=== PATIENT | male | born 1945 | race Caucasian/White ===

== ENCOUNTER → 2020-05-08 11:59 | Outpatient (CLI) | payer MEDICARE, BC, SELFPAY ==
[2020-05-08 13:37] LABS: Anion Gap 7 (5-15); BUN 30 mg/dL (7-18); Calcium,Total 9.1 mg/dL (8.5-10.1); Chloride 106 mmol/L (98-107); Creatinine, Serum 1.11 mg/dL (0.70-1.30); EST Glomerular Filtration Rate 69 mL/min (>60); Est Glom Filt Rate - Afr Amer 83 mL/min (>60); Glucose 105 mg/dL (74-106); PSA,Total- Diagnostic 7.27 ng/mL (0.0-4.0); Potassium 5.7 mmol/L (3.5-5.1); Sodium Level 136 mmol/L (136-145)
== END ==
PROVIDERS: PCP Family Medicine; Referring Provider Urology; Visit Provider Urology
DX: N40.1 Benign prostatic hyperplasia with lower urinary tract symptoms (principal)
CPT/HCPCS: 36415; 80048; 84153

== ENCOUNTER → 2020-06-06 11:51 | Outpatient (CLI) | payer MEDICARE, BC, SELFPAY ==
--- NOTE | 2020-06-06 09:15 | PROSBIL_PTH ---
PATIENT: RAJWINDER FOSS LOC: [facility] U#:[id number] AGE/SX: 80/M ROOM: RE06/06/[address]: Dr. Campbell Webster MD : 1945 BED: DIS: SPEC #: [id number] RECD: 06/06/20 12:09 STATUS: DAMI GEOFFREY #: [id number] [place]: 06/06/20 09:[address]: Campbell Webster DEPT: SURGICAL PATHOLOGY RECD BY: Felipe Washburn ENTERED: 06/06/20 13:11 SP TYPE: PROST BX FRANCK DR: Dr. Mario Oneal MD Tissues: A - PROSTATE RIGHT B - PROSTATE RIGHT C - PROSTATE RIGHT D - PROSTATE LEFT E - PROSTATE LEFT F - PROSTATE LEFT Procedures: PROSTATE BX HEADER OPERATION: Prostate biopsy PRE-OP DIAGNOSIS: Elevated PSA TISSUE SUBMITTED: A - Right apex, B - Right mid, C - Right base, D - Left apex, E - Left mid, F - Left base MICROSCOPIC DIAGNOSIS A. Right prostate, apex, core biopsy: Focal glandular atrophy and mild chronic inflammation. B. Right prostate, mid, core biopsy: Focal glandular atrophy and minimal chronic inflammation. C. Right prostate, base, core biopsy: Focal glandular atrophy. D. Left prostate, apex, core biopsy: Benign prostatic tissue. E. Left prostate, mid, core biopsy: Benign hyalinized nodule. Mild chronic inflammation. F. Left prostate, base, core biopsy: Chronic inflammation. AM:yolanda 06/07/20 MICROSCOPIC DESCRIPTION Slides are reviewed. GROSS DESCRIPTION A - Received is one container designated prostate, right apex. The specimen consists of one elongated fragment of light lange-white soft tissue measuring 1 cm in length and 0.1 cm in diameter. The specimen is totally submitted in one cassette. B - Received is one container designated prostate, right mid. The specimen consists of two elongated fragments of light lange-white soft tissue measuring 0.3 and 1 cm in length and 0.1 cm in diameter. The specimen is totally submitted in one cassette. C - Received is one container designated prostate, right base. The specimen consists of one elongated fragment of light lange-white soft tissue measuring 1.2 cm in length and 0.1 cm in diameter. The specimen is totally submitted in one cassette. D - Received is one container designated prostate, left apex. The specimen consists of one elongated fragment of light lange-white soft tissue measuring 1.5 cm in length and 0.1 cm in diameter. The specimen is totally submitted in one cassette. E - Received is one container designated prostate, left mid. The specimen consists of two elongated fragments of light lange-white soft tissue measuring 0.4 and 1.5 cm in length and 0.1 cm in diameter. The specimen is totally submitted in one cassette. F - Received is one container designated prostate, left base. The specimen consists of two elongated fragments of light lange-white soft tissue measuring 0.5 and 1 cm in length and 0.1 cm in diameter. The specimen is totally submitted in one cassette. / SJ:rg 06/06/20 TC:3 CPT: G0146
== END ==
PROVIDERS: PCP Family Medicine; Referring Provider Urology; Visit Provider Urology
DX: R97.20 Elevated prostate specific antigen [PSA] (principal)
CPT/HCPCS: 88305; G0416

== ENCOUNTER → 2020-12-28 11:48 | Outpatient (CLI) | payer MEDICARE, BC, SELFPAY ==
[2020-12-28 15:45] LABS: PSA,Total- Diagnostic 2.93 ng/mL (0.0-4.0)
== END ==
PROVIDERS: PCP Family Medicine; Referring Provider Urology; Visit Provider Urology
DX: R97.20 Elevated prostate specific antigen [PSA] (principal)
CPT/HCPCS: 36415; 84153

== ENCOUNTER → 2022-08-27 | Outpatient (CLI) | payer MEDICARE, BC, SELFPAY ==
[2022-08-27 10:21] LABS: PSA,Total- Diagnostic 2.11 ng/mL (0.0-4.0)
== END | disposition home or self-care (01) ==
PROVIDERS: PCP Family Medicine; Referring Provider Urology; Visit Provider Urology
DX: R97.20 Elevated prostate specific antigen [PSA] (principal)
CPT/HCPCS: 36415; 84153

== ENCOUNTER → 2022-10-07 | Outpatient (CLI) | payer MEDICARE, BC, SELFPAY ==
[2022-10-07 12:08] LABS: Erythrocyte Sedimentation Rate 7 mm/hr (0-20)
[2022-10-07 12:10] LABS: Absolute Lymphocyte Count 1.49 X10^3/uL (0.83-4.51); Absolute Neutrophil Count 3.2 X10^3/uL (2.0-7.7); Basophil# 0.07 X10^3/uL; Basophil% 1.2 % (0-1); Eosinophils% 7.1 % (0-5); Hematocrit 41.3 % (40-54); Hemoglobin 13.5 g/dL (13.0-16.5); Lymphocyte # 1.49 X10^3/ul (0.83-4.51); Lymphocyte % 26.3 % (19-41); Mean Corp Hgb Conc 32.7 g/dL (32-36); Mean Corpuscular Hgb 29.9 pg (27.0-32.0); Mean Corpuscular Volume 91.6 fL (80-94); Mean Platelet Vol. 9.6 fl (6.2-12.0); Monocyte# 0.47 X10^3/uL; Monocyte% 8.3 % (0-10); NRBC Flagged by Analyzer 0 % (0-5); Neutrophil # 3.22 X10^3/uL (2.7-7.7); Neutrophil % 56.7 % (47-70); Platelet Count 186 K/mm3 (150-450); RBC Distribution Width CV 12.6 % (11.6-14.6); Red Blood Count 4.51 M/mm3 (4.6-6.2); White Blood Count 5.7 K/mm3 (4.4-11.0)
[2022-10-07 12:39] LABS: BUN 15 mg/dL (7-18); Creatinine, Serum 1.08 mg/dL (0.70-1.30); EST Glomerular Filtration Rate 70 mL/min (>60); Glucose 145 mg/dL (74-106)
[2022-10-07 12:40] LABS: ALB/GLOB Ratio 0.9 RATIO (0.9-2.4); AST(SGOT) 11 U/L (15-37); Alanine Aminotransfer ALT/SGPT 13 U/L (16-61); Albumin, Serum 3.6 g/dL (3.2-5.0); Alkaline Phosphatase 57 U/L (45-117); Anion Gap 4 (5-15); BUN/Creat Ratio 13.9 RATIO (10-20); CRP < 2.90 mg/L (0.0-3.0); Calcium,Total 9.2 mg/dL (8.5-10.1); Chloride 107 mmol/L (98-107); Est Glom Filt Rate - Afr Amer 85 mL/min (>60); Potassium 4.3 mmol/L (3.5-5.1); Protein, Total 7.6 g/dL (6.4-8.2); Sodium Level 139 mmol/L (136-145)
[2022-10-08 14:08] LABS: Anti-Centromere B Ab <0.2 AI (0.0-0.9); Anti-Chromatin <0.2 AI (0.0-0.9); Anti-Jo <0.2 AI (0.0-0.9); Anti-Scleroderma-70 AB <0.2 AI (0.0-0.9); RNP Ab <0.2 AI (0.0-0.9); SJOGREN'S Anti-SS-A test < 0.2 AI (0.0-0.9); SJOGREN'S Anti-SS-B test < 0.2 AI (0.0-0.9); Smith Ab <0.2 AI (0.0-0.9)
[2022-10-08 16:09] LABS: Cytoplasmic Ab (C-ANCA) <1:20 titer (Neg:<1:20); Endomysial Antibody IgA Negative (Negative); Immunoglobulin A 388 mg/dL (61-437)
[2022-10-10 10:24] LABS: Anti-dsDNA Ab <1 IU/mL (0-9)
[2022-10-10 10:26] LABS: Perinuclear Ab (P-ANCA) <1:20 titer (Neg:<1:20); t-Transglutaminase IgA <2 U/mL (0-3)
== END | disposition home or self-care (01) ==
LOC: LAB 11:16
PROVIDERS: PCP Family Medicine; Referring Provider Nurse Practitioner Adult Health; Visit Provider Nurse Practitioner Adult Health
DX: R19.7 Diarrhea, unspecified (principal); K58.9 Irritable bowel syndrome, unspecified
CPT/HCPCS: 36415; 80053; 82784; 83516; 85025; 85652; 86140; 86225; 86235; 86255; 86256

== ENCOUNTER → 2022-10-09 | Outpatient (CLI) | payer MEDICARE, BC, SELFPAY ==
[2022-10-13 13:45] LABS: Calprotectin, Stool 29 ug/g (0-120)
== END | disposition home or self-care (01) ==
LOC: LAB 15:51 → LABSPEC 15:53
PROVIDERS: PCP Family Medicine; Visit Provider Nurse Practitioner Adult Health
DX: R19.7 Diarrhea, unspecified (principal)
CPT/HCPCS: 83630; 83993

== ENCOUNTER 2022-11-26 05:08 | Day surgery (SDC) | payer MEDICARE, BC, SELFPAY ==
[2022-11-26] VITALS (8 sets, daily range): BP systolic 121–156; BP diastolic 63–67; PULSE 63–94; RESP 16–18; TEMP 36.2–36.7; O2SAT 95–100; BMI 27.1
[2022-11-26] MEDS: Lactated Ringers 1,000 ML 15 ML IV (05:30)
--- NOTE | 2022-11-26 06:30 | COLBX_PTH ---
PATIENT: RAJWINDER FOSS LOC: [facility] U#:[id number] AGE/SX: 77/M ROOM: RE11/26/[address]: Dr. Samuel Orozco DO : 1945 BED: DIS: 11/26/2022 SPEC #: [id number] RECD: 11/26/22 17:05 STATUS: DAMI GEOFFREY #: [id number] [place]: 11/26/22 06:[address]: Samuel Orozco DEPT: SURGICAL PATHOLOGY RECD BY: Vita Lai ENTERED: 11/27/22 10:41 SP TYPE: COLON BX OTHR DR: Dr. Conor Diehl MD Tissues: A - Duodenum, NOS B - Stomach, NOS C - Esophagus, NOS D - Ileum, NOS E - COLON BIOPSY Procedures: Surgery Specimen Level IV HEADER OPERATION: Colonoscopy with biopsies, EGD with biopsies ([facility]) PRE-OP DIAGNOSIS: Diarrhea TISSUE SUBMITTED: A ? Duodenum biopsy, B ? Lesser curvature of stomach biopsy, C ? Random esophagus biopsy, D ? Terminal ileum biopsy, E ? Random colon biopsy MICROSCOPIC DIAGNOSIS A. Duodenum, biopsy: Fragments of duodenal mucosa, no pathologic diagnosis. B. Lesser curvature of stomach, biopsy: Mild gastritis. See microscopic description and comment. C. Esophagus, random biopsy: Fragments of squamous mucosa with mild chronic inflammation. See comment. D. Terminal ileum, biopsy: A fragment of small intestinal mucosa, no pathologic diagnosis. E. Colon, random biopsy: Fragments of colonic mucosa with a few pigment laden macrophages suspicious for melanosis coli. SJ:yolanda 11/28/2022 COMMENT B. The results of immunohistochemistry for Helicobacter pylori will be reported separately ([id number]). C. Significant increased number of eosinophils consistent with eosinophilic esophagitis are not seen. MICROSCOPIC DESCRIPTION Slides are reviewed. B. The specimen shows fragments of gastric mucosa with chronic inflammatory cell infiltrates in the lamina propria consisting of lymphocytes and plasma cells, consistent with mild chronic gastritis. GROSS DESCRIPTION A - Received in fixative is one container labeled with the patient's name and designated duodenum biopsy. The specimen consists of multiple irregular fragments of light lange soft tissue that in aggregate measure 1 x 0.4 x 0.1 cm. The specimen is totally submitted in one cassette. B - Received in fixative is one container labeled with the patient's name and designated lesser curvature of stomach. The specimen consists of two irregular fragments of light lange soft tissue that in aggregate measure 0.8 x 0.6 x 0.1 cm. The specimen is totally submitted in one cassette. C - Received in fixative is one container labeled with the patient's name and designated random esophagus biopsy. The specimen consists of multiple irregular fragments of light lange soft tissue that in aggregate measure 0.8 x 0.4 x 0.1 cm. The specimen is totally submitted in one cassette. D - Received in fixative is one container labeled with the patient's name and designated terminal ileum. The specimen consists of one irregular fragment of light lange soft tissue that measures 0.4 x 0.4 x 0.1 cm. The specimen is totally submitted in one cassette. E - Received in fixative is one container labeled with the patient's name and designated random colon biopsy. The specimen consists of multiple irregular fragments of light lange soft tissue that in aggregate measure 1.5 x 0.6 x 0.1 cm. The specimen is totally submitted in one cassette. / SJ:rg 11/27/2022 TC:3 CPT: 69866 x5
--- NOTE | 2022-11-26 06:30 | IMM_PTH ---
PATIENT: RAJWINDER FOSS LOC: EN U#:[id number] AGE/SX: 77/M ROOM: RE11/26/[address]: Dr. Samuel Orozco DO : 1945 BED: DIS: 11/26/2022 SPEC #: [id number] RECD: 11/27/22 13:23 STATUS: DAMI REMauricio #: [id number] [place]: 11/26/22 06:[address]: Samuel Orozco DEPT: IMMUNOHISTOCHEMISTRY RECD BY: Marry Sandoval ENTERED: 11/27/22 13:23 SP TYPE: IMMUNO OTHR DR: Dr. Conor Diehl MD Tissues: B - Stomach, NOS Procedures: H Pylori (initial) PHYSICIAN & INSTITUTION [place] [address] SPECIMEN INFORMATION: Tissue Source: B ? Lesser curvature of stomach Clinical Info: Diarrhea, eosinophilic gastroenteritis Specimen Number: [id number] CPT code: 62622 METHODOLOGY: Deparaffinized sections of prefer/formalin-fixed tissue or PAP/DQ stained slides are incubated with monoclonal/polyclonal antibodies/oligonucleotide probes. Localization is made via biotin free immunoperoxidase method. Appropriate controls are performed and reacted as expected. Results on target cell population are indicated in the following table: RESULTS: ANTIBODY / CLONE RESULT Block B H Pylori (polyclonal) negative These tests were developed and their performance characteristics determined by [facility]. They may not have been cleared or approved by the U.S. Food and Drug Administration. The FDA has determined that such clearance or approval is not necessary. The above immunohistochemical/dualISH markers are ordered and reviewed by the Pathologist. INTERPRETATION: B. Lesser curvature of stomach, biopsy: Negative for Helicobacter pylori organisms. SJ:yolanda 11/28/2022
--- NOTE | 2022-11-26 06:36 | PCM.HP.BLA ---
History and Physical Date of Admission: 11/26/22 ?77 M who presents to the office today for diarrhea, can be urgent and explosive. Bowel changes began 2 yrs ago. BMs 2-3x per day, watery with loose stool in it. Not post prandial. No melena or hematochezia. No abd pain or cramping. Minimal relief with adding fiber. No nocturnal diarrhea. No formed stools. Weight is stable. He cut out leafy greens and dairy which has helped. His twin daughters live in [place], they convinced him to switch to oat milk, only minimal improvement in the diarrhea. No nausea, vomiting, heartburn, dysphagia. Normal appetite, no early satiety. 06/2022 negative stool tests for C diff, O&P, enteric pathogens, giardia Colonoscopy by general surgeon Dr Rl Oneal 2015, and again about a year ago per pt, and results were normal per patient (we will request op and path reports) Diabetic since 1986, says he's good about watching his diet ROS Const Constitutional: No fatigue ENT ENT: No difficulty swallowing Gastro GI: Positive for change in bowel habits and diarrhea; No abdominal pain, belching, bloating, change in stool character, coffee ground emesis, constipation, cramping, heartburn, difficulty swallowing, feeling full early, excessive flatus, incontinent of stools, Vomiting blood/hematemesis, Blood in stool, loose stools, Black,tarry stools, nausea/dyspepsia, pain with swallowing, vomiting or other Musc Musculoskeletal: No joint pain Skin Skin: No yellowing of the eye or itchy eyes Psych Psychiatric: No anxiety and No depression Endo Endocrine: No fatigue Aller/Imm Allergy/Immunologic: No itchy eyes Jadiel/Lymp Hematologic/Lymphatic: No easy bleeding or easy bruising Exam Const General: cooperative and healthy appearing Nutritional Appearance: overweight Orientation: alert, awake and oriented x3 HENMT Head: normal to inspection Eyes Sclera: sclerae normal Resp Effort & Inspection: normal respiratory effort GI Inspection: obesity Palpation: soft, no hepatosplenomegaly, no masses and nontender Skin General: no rashes or lesions noted Neuro Gait: normal gait Psych Mood: euthymic mood Quality Reporting Tobacco Screening ([facility] 138) Smoking Status: Former smoker Assessment and Plan Assessment and Plan (1) Diarrhea: ?Status:?Acute ?Plan: 77 yr old male with chronic diarrhea. DDx includes microscopic colitis, diabetic diarrhea, bile acid, polyps, IBD. Will get stool tests for inflammation, and blood tests. Will schedule him for EGD and colonoscopy with office f/u 2 wks later. Rx colestipol 1 gram once a day. He is very active, the urgent BMs are interfering with his QOL. ? ? ? Orders: Orders Calprotectin, Stool Today R19.7 - Diarrhea, unspecified ? Stool Lactoferrin/WBC Today K58.9 - Irritable bowel syndrome without diarrhea, R19.7 - Diarrhea, unspecified ? Comprehensive Metabolic Profil Today R19.7 - Diarrhea, unspecified ? CRP Today R19.7 - Diarrhea, unspecified ? CBC W/Diff, Automated Today K58.9 - Irritable bowel syndrome without diarrhea, R19.7 - Diarrhea, unspecified ? Erythrocyte Sed Rate Today R19.7 - Diarrhea, unspecified ? VAL Comprehensive Panel Today R19.7 - Diarrhea, unspecified ? ANCA Today R19.7 - Diarrhea, unspecified ? Celiac Disease Profile Today R19.7 - Diarrhea, unspecified ? Medications: New colestipol ?? avoid other meds within 1hr before or 4-6hr after dose 1 g? PO ONCE 30 tabs 3RF loose stools ? ? I have examined the patient and the H&P has been reviewed. There are no clinical changes since date of exam.
[2022-11-26 06:51] LABS: Bedside Glucose 142 mg/dL (74-106)
--- NOTE | 2022-11-26 13:00 | OP.EGD_ITS ---
Patient Name: Jamia Forbes Procedure Date: 11/26/2022 12:10 PM Date of : 1945 Age: 77 Procedure: Upper GI endoscopy Indications: Epigastric abdominal pain, Failure to respond to medical treatment Providers: Samuel Orozco DO Referring MD: Samuel Orozco DO Medicines: Monitored Anesthesia Care Patient Profile: This is a 77 year old male. Refer to note in patient chart for documentation of history and physical. Patient has symptoms of chronic epigastric abdominal pain and chronic dyspepsia. Complications: No immediate complications. Procedure: Pre-Anesthesia Assessment: - Prior to the procedure, a History and Physical was performed, and patient medications and allergies were reviewed. The risks and benefits of the procedure and the sedation options and risks were discussed with the patient. All questions were answered and informed consent was obtained. Patient identification and proposed procedure were verified by the physician. Mental Status Examination: normal. Respiratory Examination: clear to auscultation. Prophylactic Antibiotics: The patient does not require prophylactic antibiotics. Prior Anticoagulants: The patient has taken no previous anticoagulant or antiplatelet agents. After reviewing the risks and benefits, the patient was deemed in satisfactory condition to undergo the procedure. The anesthesia plan was to use monitored anesthesia care (MAC). Immediately prior to administration of medications, the patient was re-assessed for adequacy to receive sedatives. The heart rate, respiratory rate, oxygen saturations, blood pressure, adequacy of pulmonary ventilation, and response to care were monitored throughout the procedure. The physical status of the patient was re-assessed after the procedure. After obtaining informed consent, the endoscope was passed under direct vision. Throughout the procedure, the patient's blood pressure, pulse, and oxygen saturations were monitored continuously. The colonoscope was introduced through the mouth, and advanced to the second part of duodenum. The upper GI endoscopy was accomplished without difficulty. The patient tolerated the procedure well. Scope In: 12:22:18 PM Scope Out: 12:28:50 PM Total Procedure Duration Time 0 hours 6 minutes 32 seconds Findings: Mucosal changes including ringed esophagus, feline appearance, longitudinal furrows, small-caliber esophagus and white plaques were found in the entire esophagus. Esophageal findings were graded using the Eosinophilic Esophagitis Endoscopic Reference Score (EoE-EREFS) as: Edema Grade 1 Present (decreased clarity or absence of vascular markings), Rings Grade 2 Moderate (distinct rings that do not occlude passage of diagnostic 8-10 mm endoscope), Exudates Grade 1 Mild (scattered white lesions involving less than 10 percent of the esophageal surface area), Furrows Grade 1 Present (vertical lines with or without visible depth) and Stricture present (5 mm luminal diameter). Biopsies were taken with a cold forceps for histology. Verification of patient identification for the specimen was done. Estimated blood loss was minimal. A guidewire was placed and the scope was withdrawn. Dilation was performed with a Savary dilator with no resistance at 42 Fr. The dilation site was examined and showed moderate improvement in luminal narrowing. Estimated blood loss was minimal. A small hiatal hernia was present. Diffuse moderately erythematous mucosa without bleeding was found on the lesser curvature of the stomach. Biopsies were taken with a cold forceps for histology. Verification of patient identification for the specimen was done. Estimated blood loss was minimal. Four non-bleeding superficial duodenal ulcers with no stigmata of bleeding were found in the duodenal bulb. The largest lesion was 3 mm in largest dimension. Biopsies were taken with a cold forceps for histology. Verification of patient identification for the specimen was done. Estimated blood loss was minimal. 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 Biopsied. Dilated. - Small hiatal hernia. - Erythematous mucosa in the lesser curvature. Biopsied. - Multiple non-bleeding duodenal ulcers with no stigmata of bleeding. Biopsied. Recommendation: - Discharge patient to home. - Resume previous diet. - Continue present medications. - Await pathology results. - Use Protonix (pantoprazole) 40 mg PO daily. Procedure Code(s): --- Professional --- 99788, Esophagogastroduodenoscopy, flexible, transoral; with insertion of guide wire followed by passage of dilator(s) through esophagus over guide wire 66090, 59, Esophagogastroduodenoscopy, flexible, transoral; with biopsy, single or multiple CPT copyright 2017 [employer]. All rights reserved. The codes documented in this report are preliminary and upon certified procedural coder review may be revised to meet current compliance requirements. Samuel Orozco DO 11/26/2022 1:00:09 PM This report has been signed electronically. Number of Addenda: 0 Note Initiated On: 11/26/2022 12:10 PM
--- NOTE | 2022-11-26 13:01 | OP.CCLET_ITS ---
11/26/2022 Conor Diehl Md Re : Upper GI endoscopy procedure for Jamia Forbes Dear Fazal This procedure was performed on Saturday, November 26, 2022. 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 Biopsied. Dilated. - Small hiatal hernia. - Erythematous mucosa in the lesser curvature. Biopsied. - Multiple non-bleeding duodenal ulcers with no stigmata of bleeding. Biopsied. Recommendations : - Discharge patient to home. - Resume previous diet. - Continue present medications. - Await pathology results. - Use Protonix (pantoprazole) 40 mg PO daily. My findings are described in the full procedure note, which is enclosed. If I can be of further assistance, please feel free to contact me at . Sincerely, Samuel Orozco, 11/26/2022 1:00:09 PM This report has been signed electronically.
--- NOTE | 2022-11-26 13:03 | OP.COLON_ITS ---
Patient Name: Jamia Forbes Procedure Date: 11/26/2022 12:29 PM Date of : 1945 Age: 77 Procedure: Colonoscopy Indications: Clinically significant diarrhea of unexplained origin Providers: Samuel Orozco DO Referring MD: Samuel Orozco DO Medicines: Monitored Anesthesia Care Patient Profile: This is a 77 year old male. Refer to note in patient chart for documentation of history and physical. Patient has symptoms of chronic epigastric abdominal pain and chronic dyspepsia. Last Colonoscopy: date unknown. Unable to locate last colonoscopy report. Complications: No immediate complications. Procedure: Pre-Anesthesia Assessment: - Prior to the procedure, a History and Physical was performed, and patient medications and allergies were reviewed. The risks and benefits of the procedure and the sedation options and risks were discussed with the patient. All questions were answered and informed consent was obtained. Patient identification and proposed procedure were verified by the physician. Mental Status Examination: normal. Respiratory Examination: clear to auscultation. Prophylactic Antibiotics: The patient does not require prophylactic antibiotics. Prior Anticoagulants: The patient has taken no previous anticoagulant or antiplatelet agents. After reviewing the risks and benefits, the patient was deemed in satisfactory condition to undergo the procedure. The anesthesia plan was to use monitored anesthesia care (MAC). Immediately prior to administration of medications, the patient was re-assessed for adequacy to receive sedatives. The heart rate, respiratory rate, oxygen saturations, blood pressure, adequacy of pulmonary ventilation, and response to care were monitored throughout the procedure. The physical status of the patient was re-assessed after the procedure. After I obtained informed consent, the scope was passed under direct vision. Throughout the procedure, the patient's blood pressure, pulse, and oxygen saturations were monitored continuously. The colonoscope was introduced through the anus and advanced to the terminal ileum. The colonoscopy was performed without difficulty. The patient tolerated the procedure well. The quality of the bowel preparation was good. Scope In: 12:33:02 PM Scope Out: 12:46:30 PM Total Procedure Duration Time 0 hours 13 minutes 28 seconds Findings: The perianal and digital rectal examinations were normal. An area of mildly congested mucosa was found in the sigmoid colon, in the transverse colon, at the hepatic flexure and in the cecum. Biopsies were taken with a cold forceps for histology. Verification of patient identification for the specimen was done. Estimated blood loss was minimal. Patchy inflammation, mild in severity was found in the terminal ileum. Biopsies were taken with a cold forceps for histology. Verification of patient identification for the specimen was done. Estimated blood loss was minimal. Impression: - Congested mucosa in the sigmoid colon, in the transverse colon, at the hepatic flexure and in the cecum. Biopsied. - Ileitis. Biopsied. Recommendation: - Discharge patient to home. - Resume previous diet. - Continue present medications. - Await pathology results. - Repeat colonoscopy in 5 years for surveillance. Procedure Code(s): --- Professional --- 14673, Colonoscopy, flexible; with biopsy, single or multiple CPT copyright 2017 [employer]. All rights reserved. The codes documented in this report are preliminary and upon lead injection mold technician review may be revised to meet current compliance requirements. Samuel Orozco DO 11/26/2022 1:02:53 PM This report has been signed electronically. Number of Addenda: 0 Note Initiated On: 11/26/2022 12:29 PM
--- NOTE | 2022-11-26 13:03 | OP.CCLET_ITS ---
11/26/2022 Conor Diehl Md Re : Colonoscopy procedure for Jamia Forbes Dear Fazal This procedure was performed on Saturday, November 26, 2022. My impressions and recommendations are as follows: Impressions : - Congested mucosa in the sigmoid colon, in the transverse colon, at the hepatic flexure and in the cecum. Biopsied. - Ileitis. Biopsied. Recommendations : - Discharge patient to home. - Resume previous diet. - Continue present medications. - Await pathology results. - Repeat colonoscopy in 5 years for surveillance. My findings are described in the full procedure note, which is enclosed. If I can be of further assistance, please feel free to contact me at . Sincerely, Samuel Orozco, 11/26/2022 1:02:53 PM This report has been signed electronically.
[2022-11-26] MEDS: Ipratropium/Albuterol Sulfate 3 ML AMPUL.NEB INHALATION (13:06)
--- NOTE | 2022-11-26 13:08 | SUR.PHASEI ---
SINCE PACU ARRIVAL: LUNGS VERY COURSE POSTERIORLY, MOIST UPPER AIRWAY AND AUDIBLE MOIST BREATHING, FREQUENT COUGH, NO SPUTUM. MAINTAINING SPO2 BETWEEN 93-98% ON ROOM AIR. NO EPISODES OF ASPIRATION DURING PROCEDURE PER TRACIE JAIN. NOTIFIED DR KUMAR WHO ORDERED DUONEB AEROSOL TX x 1. PATIENT DENIES DIFFICULTY BREATHING, STATES HE DID HAVE A MILD COUGH ON ARRIVAL THIS MORNING. Hx SMOKER.
== END 2022-11-26 13:53 | disposition home or self-care (01) ==
LOC: EN 05:09 → AC 05:11
PROVIDERS: PCP Family Medicine; Referring Provider Internal Medicine Gastroenterology; Visit Provider Internal Medicine Gastroenterology
PROC: 0DJD8ZZ Inspection of Lower Intestinal Tract, Via Natural or Artificial Opening Endoscopic (ICD-10-PCS; CPT 45378; principal; 2022-11-26 06:25)
DX: K44.9 Diaphragmatic hernia without obstruction or gangrene (principal); E11.9 Type 2 diabetes mellitus without complications; K20.0 Eosinophilic esophagitis; K63.89 Other specified diseases of intestine; K52.9 Noninfective gastroenteritis and colitis, unspecified; K29.70 Gastritis, unspecified, without bleeding; K26.9 Duodenal ulcer, unspecified as acute or chronic, without hemorrhage or perforation; I10 Essential (primary) hypertension; E78.5 Hyperlipidemia, unspecified; Z79.899 Other long term (current) drug therapy; Z79.84 Long term (current) use of oral hypoglycemic drugs; Z87.891 Personal history of nicotine dependence
CPT/HCPCS: 43239; 43248; 45380; 82962; 88305; 88342; 94640; J7120; J2405

== ENCOUNTER → 2022-11-28 | Outpatient (CLI) | payer MEDICARE, BC, SELFPAY ==
[2022-11-28 08:35] LABS: Erythrocyte Sedimentation Rate 24 mm/hr (0-20)
[2022-11-28 08:48] LABS: CRP 5.14 mg/L (0.0-3.0)
== END | disposition home or self-care (01) ==
PROVIDERS: PCP Family Medicine; Referring Provider Internal Medicine Gastroenterology; Visit Provider Internal Medicine Gastroenterology
DX: R19.7 Diarrhea, unspecified (principal)
CPT/HCPCS: 36415; 85652; 86140

== ENCOUNTER → 2022-12-25 | Outpatient (CLI) | payer MEDICARE, BC, SELFPAY ==
--- NOTE | 2022-12-25 06:42 | CT_ITS ---
STUDY: CT ABDOMEN AND PELVIS WITH CONTRAST REASON FOR EXAM: Male, 77 years old. ileitis, +inflammatory markers -- enterography RADIATION DOSAGE (If Supplied By Facility): CTDIvol = ( 18.00 ) mGy, DLP = ( 1851.39 ) mGycm TECHNIQUE: Transaxial images were obtained from the dome of the diaphragm to the symphysis pubis without oral contrast. IV 100mL Isovue-370 was administered. Sagittal and coronal images were reconstructed. Individualized dose optimization techniques were used for this CT. COMPARISON: None. FINDINGS: The visualized lung bases are unremarkable. Coronary artery calcification. There is decreased attenuation of the liver consistent with steatosis. Small gallstones are seen in the neck of the gallbladder. Normal spleen. Normal pancreas. Normal bilateral adrenal glands. Normal right kidney. Normal left kidney. Normal visualized stomach. Normal small intestine. Normal colon. The appendix is visualized and appears normal. There is scattered atherosclerotic calcification of the abdominal aorta, without a demonstrated aneurysm. Normal inferior vena cava. Normal retroperitoneum. Normal urinary bladder. There is enlargement of the prostate gland. The prostate measures 4.9 cm x 4.5 cm. This causes indentation of the bladder base. Normal abdominal wall. There are degenerative changes of the visualized lumbar spine. CT/Abdomen/Pelvis WITH Contrast IMPRESSION: Small gallstones seen in the neck of the gallbladder. Fatty infiltration of the liver. Prostatic enlargement with indentation of the bladder base. Electronically Signed: August Sinclair MD at 13:48 EST ,
[2022-12-25 07:15] LABS: CREATININE FINGERSTICK < 0.9 mg/dL (0.70-1.30); EGFR FINGERSTICK > 60.0000 mL/min (>60)
== END | disposition home or self-care (01) ==
LOC: CT 06:36
PROVIDERS: PCP Family Medicine; Referring Provider Nurse Practitioner Adult Health; Visit Provider Nurse Practitioner Adult Health
DX: K50.00 Crohn's disease of small intestine without complications (principal)
CPT/HCPCS: 74177; Q9967

== ENCOUNTER → 2023-09-25 | Outpatient (CLI) | payer MEDICARE, BC, SELFPAY ==
[2023-09-25 14:04] LABS: PSA,Total- Diagnostic 3.03 ng/mL (0.0-4.0)
== END | disposition home or self-care (01) ==
LOC: LAB 13:09
PROVIDERS: PCP Family Medicine; Referring Provider Urology; Visit Provider Urology
DX: R97.20 Elevated prostate specific antigen [PSA] (principal)
CPT/HCPCS: 36415; 84153

== ENCOUNTER → 2024-09-28 | Outpatient (CLI) | payer MEDICARE, BC, SELFPAY ==
[2024-09-28 09:35] LABS: PSA,Total - Annual Screen 2.72 ng/mL (0.00-4.00)
== END | disposition home or self-care (01) ==
LOC: LAB 08:46
PROVIDERS: PCP Family Medicine; Referring Provider Urology; Visit Provider Urology
DX: Z12.5 Encounter for screening for malignant neoplasm of prostate (principal)
CPT/HCPCS: 36415; 84153; G0103